=== PATIENT | female | born 1985 | race Caucasian/White ===

== ENCOUNTER 2017-11-17 18:41 | Emergency (ER) | payer OTHER ==
[2017-11-17] MEDS: EPINEPHrine 1MG/10ML SYRINGE 1.5IN IV ×5 (18:44→18:54)
[2017-11-17] MEDS: SODIUM BICARBONATE 8.4% INJ 50 ML SYRINGE IV (18:49)
== END 2017-11-17 21:56 | disposition expired ==
LOC: M ED 18:41
DX: R40.20 Unspecified coma (principal); T71.164A Asphyxiation due to hanging, undetermined, initial encounter; Y92.099 Unspecified place in other non-institutional residence as the place of occurrence of the external cause; Y93.9 Activity, unspecified; Z79.899 Other long term (current) drug therapy; Z88.6 Allergy status to analgesic agent; Z88.5 Allergy status to narcotic agent
CPT/HCPCS: 96374

== ENCOUNTER → 2017-11-19 | Outpatient (REF) | LOC: M LAB 09:36 | DX: Z02.89 Encounter for other administrative examinations (principal) ==